=== PATIENT | female | born 1965 | race Caucasian/White ===

== ENCOUNTER 2016-05-08 08:54 | Emergency (ER) | payer MEDICARE | END 2016-05-08 11:28 | disposition home or self-care (01) | LOC: ER1 08:54 | DX: J06.9 Acute upper respiratory infection, unspecified (principal) | CPT/HCPCS: 71020; 87081; 87880; 94664; 99283 ==

== ENCOUNTER → 2016-08-10 | Outpatient (CLI) | payer MEDICARE | LOC: RAD 18:07 | DX: M54.5 Low back pain (principal); M25.561 Pain in right knee; M54.6 Pain in thoracic spine; M85.88 Other specified disorders of bone density and structure, other site; M51.34 Other intervertebral disc degeneration, thoracic region; M47.896 Other spondylosis, lumbar region | CPT/HCPCS: 72072; 72100; 73560 ==

== ENCOUNTER → 2020-04-01 | Outpatient (CLI) | payer OTHER ==
[2020-04-01 16:44] LABS: HEMOGLOBIN 13.5 gm/dl (12.3-15.3); RED BLOOD COUNT 4.81 M/UL (4.00-5.10)
[2020-04-01 17:07] LABS: BUN/CREATININE RATIO 17 (0-10)
== END ==
LOC: LAB 15:21
PROVIDERS: Family Medicine
DX: Z01.812 Encounter for preprocedural laboratory examination (principal); Z20.822 Contact with and (suspected) exposure to COVID-19; E03.9 Hypothyroidism, unspecified; R73.9 Hyperglycemia, unspecified
CPT/HCPCS: 36415; 80053; 80061; 83036; 84439; 84443; 85025; U0002

== ENCOUNTER → 2020-04-05 | Outpatient (CLI) | payer OTHER | LOC: RAD 16:38 | DX: M17.0 Bilateral primary osteoarthritis of knee (principal); M54.5 Low back pain | CPT/HCPCS: 72100; 73562 ==

== ENCOUNTER → 2020-08-03 | Outpatient (CLI) | payer OTHER | LOC: HEART 5 10:01 | DX: J45.909 Unspecified asthma, uncomplicated (principal) | CPT/HCPCS: 94060; 94729 ==

== ENCOUNTER → 2021-02-04 | Outpatient (CLI) | payer OTHER ==
[~2021-02-04] MED LIST: ALBUTEROL INH; CALCIUM PO; CELEBREX200 MG PO; FLUTICASONE-SA1 EAC4 INH; GLUCOSAMINE PO; HYDROCORTISONE TOP; IBU-200200 MG PO; LEVOTHYROXINE100 MCG PO; MULTI COMPLETE1 EACH PO; OMEPRAZOLE20 MG PO; SYMBICORT 160-1 INHA INH; VITAMIN C PO; VITAMIN D PO; ZINC50 M1 PO
[2021-02-04 12:26] LABS: HEMOGLOBIN 14.1 gm/dl (12.3-15.3); RED BLOOD COUNT 4.81 M/UL (4.00-5.10); WHITE BLOOD COUNT 6.7 K/UL (4.5-11.0)
== END ==
LOC: OPSV2 02-01 11:00 → EDSTATUS 10:00 → OPSV2 10:00
PROVIDERS: Anesthesiology
DX: Z01.812 Encounter for preprocedural laboratory examination (principal); M17.11 Unilateral primary osteoarthritis, right knee
CPT/HCPCS: 36415; 85025

== ENCOUNTER → 2021-02-14 | Outpatient (CLI) | payer OTHER ==
[~2021-02-14] MED LIST changes: +ASPIRIN 325MG325 MG PO; +PERCOCET 7.5-31 EACH PO
[2021-02-14 11:51] LABS: BUN/CREATININE RATIO 16 (0-10)
== END ==
LOC: LAB 10:48
PROVIDERS: Orthopaedic Surgery
DX: Z01.812 Encounter for preprocedural laboratory examination (principal); M17.11 Unilateral primary osteoarthritis, right knee
CPT/HCPCS: 36415; 80048; 86850; 86900; 86901

== ENCOUNTER 2021-02-15 08:31 | Day surgery (SDC) | payer OTHER ==
[~2021-02-15] VITALS: Ht 167.6 cm; Wt 91.6 kg
[~2021-02-15 08:31] MED LIST changes: -ASPIRIN 325MG325 MG PO; -PERCOCET 7.5-31 EACH PO
--- NOTE | 2021-02-15 16:51 | NUR ---
RUFINO MICHAELS APPLIED, POLAR ICE IN PLACE, INCENTIVE SPIROMETER GIVEN TO PT WITH INSTRUCTIONS, CIRCULATION LESS THAN 3 SECONDS IN TOES, TOES, WARM, DRY AND PINK
[2021-02-16] MEDS ORDERED: ASPIRIN 325MG325 MG PO (11:16)
[2021-02-16] MEDS ORDERED: PERCOCET 7.5-31 EACH PO (12:12)
== END 2021-02-16 15:49 | disposition home or self-care (01) ==
LOC: OR 08:31 → M/S 15:07 → OR 02-16 15:49
DX: M17.11 Unilateral primary osteoarthritis, right knee (principal); M79.4 Hypertrophy of (infrapatellar) fat pad; M24.561 Contracture, right knee; Z79.82 Long term (current) use of aspirin
CPT/HCPCS: 73560; 76000; 97110-GP-CQ; 97116-GP-CQ; 97161; 97166; 97535; C1776; J0690; J1100; J1170; J1885; J2250; J2405; J2704; J2795; J3010; J7120

== ENCOUNTER → 2021-04-05 | Outpatient (CLI) | payer OTHER ==
[~2021-04-05] MED LIST changes: +ASPIRIN 325MG325 MG PO; +PERCOCET 7.5-31 EACH PO
== END ==
LOC: CT 14:29
DX: R41.3 Other amnesia (principal)
CPT/HCPCS: 70470; Q9967

== ENCOUNTER 2021-06-28 09:20 | Emergency (ER) | payer OTHER ==
[2021-06-28 11:31] LABS: RED BLOOD COUNT 4.48 M/UL (4.00-5.10); WHITE BLOOD COUNT 10.2 K/UL (4.5-11.0)
[2021-06-28 12:06] LABS: BUN/CREATININE RATIO 29 (0-10)
== END 2021-06-28 15:44 | disposition home or self-care (01) ==
LOC: ER1 09:20
PROVIDERS: Emergency Medicine
DX: J04.0 Acute laryngitis (principal); J06.9 Acute upper respiratory infection, unspecified; J45.909 Unspecified asthma, uncomplicated; Z20.822 Contact with and (suspected) exposure to COVID-19; R06.00 Dyspnea, unspecified
CPT/HCPCS: 0240U; 70491; 71046; 80053; 82550; 82553; 83690; 84484; 85025; 85379; 93005; 99285; J1100; J7040; Q9967

== ENCOUNTER → 2021-08-22 | Outpatient (CLI) | payer OTHER | LOC: KOH-I 14:25 | DX: M25.561 Pain in right knee (principal); M54.2 Cervicalgia; M54.6 Pain in thoracic spine; M54.50 Low back pain, unspecified; M47.812 Spondylosis without myelopathy or radiculopathy, cervical region | CPT/HCPCS: 72040; 72070; 72100; 73562 ==